=== PATIENT | male | born 1980 | race Caucasian/White ===

== ENCOUNTER 2019-02-22 19:48 | Emergency (ER) | payer BC, OTHER ==
[~2019-02-22] VITALS: Ht 175.3 cm; Wt 92.2 kg
[2019-02-22 20:03] VITALS: Ht 175.3 cm; Wt 92.2 kg
--- NOTE | 2019-02-23 00:10 | ERD ---
ER Documentation Chief Complaint Chief Complaint APPARENT BUG BITE ON R HAND, L CHEST X'S 2 DAYS. SWOLLEN, HOT HPI 38-year-old male presents with complaint of erythematous rash on his right hand as well as erythematous indurated mass under his left armpit for the past 2 days. States that the rash on the hand hurts when touched. Not taking any treatments. Denies any fevers. Denies any trauma. Denies any medical problems. Allergic to codeine. ROS All systems reviewed and are negative except as per history of present illness. Medications Home Meds Active Scripts Sulfamethoxazole/Trimethoprim* (Bactrim Ds* Tablet) 1 Each Tablet, 1 TAB PO BID for cellulitis for 7 Days, #14 TAB Prov:JAMEL FERRER 02/23/19 Cephalexin* (Keflex*) 500 Mg Capsule, 500 MG PO QID for cellulitis for 7 Days, CAP Prov:JAMEL FERRER 02/23/19 Hydrocodone/Acetaminophen ([place] 5-325 Tablet) 1 Each Tablet, 1 TAB PO Q6H PRN for PAIN, #10 TAB Prov:JAMEL FERRER 02/23/19 PMhx/Soc Medical and Surgical Hx: pt denies Medical Hx, pt denies Surgical Hx Hx Alcohol Use: Yes (SOCIAL ) Hx Substance Use: No Hx Tobacco Use: No Physical Exam Vitals Vital Signs Date Temp Pulse Resp B/P (MAP) Pulse Ox O2 O2 Flow FiO2 Time Delivery Rate 02/22/19 97.7 82 20 153/93 97 20:03 (113) Physical Exam Const: No acute distress Head: Atraumatic Eyes: Normal Conjunctiva ENT: Normal External Ears, Nose and Mouth. Neck: Full range of motion. No meningismus. Resp: Clear to auscultation bilaterally Cardio: Regular rate and rhythm, no murmurs Abd: Soft, non tender, non distended. Normal bowel sounds Skin: Proximally 2 cm area of erythema located on the dorsal aspect of his left hand at approximately third MCP. There is no underlying mass. There is no bony deformity noted. In addition, there is approximately 2 cm indurated mass located on the left armpit with some draining noted. There is no tenderness to palpation or lymphatic streaking noted. Back: No midline or flank tenderness Ext: No cyanosis, or edema Neur: Awake and alert Psych: Normal Mood and Affect Results 24 hrs Current Medications Medications Dose Sig/Lacey Start Time Status Last (Trade) Ordered Route PRN Stop Time Admin Dose Reason Admin Lidocaine 1 applic ONCE ONCE 02/23/19 DC 02/23/19 (Lmx 4% Plus) TOP 00:30 02/23/19 00:24 00:31 Lidocaine 20 ml ONCE ONCE 02/23/19 DC (Xylocaine SC 00:30 02/23/19 1% (Mdv) 20 00:31 ml) Procedures/MDM MDM: Patient's presentation is consistent with cellulitis of the hand and abscess with possible surrounding cellulitis of the axilla. Attempt was made to drain the abscess but no pus was able to be removed. Patient was placed on Keflex and Bactrim for 7 days and told to return in 2 days for wound check. Patient was given [place] for pain since he states he has not been able to sleep at night due to the discomfort. I have low suspicion for bacteremia or any other emergent condition. Patient discharged with strict ER precautions. Patient advised to follow up with PMD. All questions answered at discharge. Departure Diagnosis: Primary Impression: Cellulitis Site of cellulitis: extremity Site of cellulitis of extremity: upper extremity Laterality: unspecified laterality Qualified Codes: L03.119 - Cellulitis of unspecified part of limb Condition: Stable JAMEL FERRER February 23, 2019 00:10
[2019-02-23] MEDS ORDERED: LIDOCAINE 1% (MDV) 20 ML INJ SC ONE (00:30)
[2019-02-23] MEDS ORDERED: LIDOCAINE 4% CR TOP ONE (00:30)
[2019-02-23] MEDS ORDERED: HYDR-4011 PO (01:52)
[2019-02-23] MEDS ORDERED: CEPH-443 PO (01:52)
[2019-02-23] MEDS ORDERED: SULF1TAB31 PO (01:52)
[2019-02-23 02:08] VITALS: BP 135/92; PULSE 85; RESP 18
== END 2019-02-23 02:09 | disposition home or self-care (01) ==
LOC: FTE 19:48
DX: L03.114 Cellulitis of left upper limb (principal)
CPT/HCPCS: 99283

== ENCOUNTER 2019-06-26 13:31 | Emergency (ER) | payer BC ==
[~2019-06-26] VITALS: Ht 157.5 cm; Wt 90.0 kg
[~2019-06-26 13:31] MED LIST: CEPH-443 PO; ERYT1OIN6 RIGHT EYE; HYDR-4011 PO; SULF1TAB31 PO
[2019-06-26 13:35] VITALS: BP 152/87; PULSE 90; RESP 18; Ht 157.5 cm; Wt 90.0 kg
== END 2019-06-26 15:25 | disposition home or self-care (01) ==
LOC: FTE 13:31
DX: H00.012 Hordeolum externum right lower eyelid (principal); F17.210 Nicotine dependence, cigarettes, uncomplicated
CPT/HCPCS: 99283